=== PATIENT | female | born 1985 | race Caucasian/White ===

== ENCOUNTER → 2016-07-18 | Outpatient (CLI) | payer BC | END | disposition home or self-care (01) | LOC: C.PAPS 15:42 | PROVIDERS: ATTEND Obstetrics & Gynecology | DX: Z34.90 Encounter for supervision of normal pregnancy, unspecified, unspecified trimester (principal) ==

== ENCOUNTER → 2016-07-18 | Outpatient (CLI) | payer BC ==
[2016-07-18 15:32] LABS: BASO % 0.5 %; BASO ABS # 0.06 K/uL (0-0.2); COMPLETE YES; EOS % 1.4 %; IG% 0.2 %; LYMPH % 16.7 %; LYMPH ABS # 1.99 K/uL (1.2-3.4); MEAN CELL VOLUME 88.9 fL (80-100); MEAN CORPUSCULAR HEMOGLOBIN 30.3 pg (25-34); MEAN CORPUSCULAR HGB CONC 34.1 g/dl (32-36); MEAN PLATELET VOLUME 10.5 fL (7.4-10.4); MONO % 7.9 %; NEUT % 73.3 %; PLATELET COUNT 256 K/uL (130-400); RED BLOOD COUNT 4.16 M/uL (4.2-5.4); WHITE BLOOD COUNT 11.94 K/uL (4.8-10.8)
[2016-07-18 15:55] LABS: URINE APPEARANCE CLEAR (CLEAR); URINE BILIRUBIN NEG (NEG); URINE COLOR YELLOW; URINE NITRITE NEG (NEG); URINE PH 5.5 (4.5-7.5); URINE SPECIFIC GRAVITY 1.006 (1.000-1.030); UROBILINOGEN NEG (NEG)
[2016-07-18 16:01] LABS: MANUAL MICROSCOPIC REQUIRED? NO; REVIEW REQ? NO
[2016-07-21 01:35] LABS: CHLAMYDIA TRACH RNA*** NOT DETECTED (NOT DETECTED); GC (NEIS GONORRHOEAE)RNA** NOT DETECTED (NOT DETECTED)
== END | disposition home or self-care (01) ==
LOC: C.LAB1850 14:54
PROVIDERS: ATTEND Obstetrics & Gynecology
DX: Z34.90 Encounter for supervision of normal pregnancy, unspecified, unspecified trimester (principal); N76.2 Acute vulvitis

== ENCOUNTER → 2016-09-12 | Outpatient (CLI) | payer BC ==
[~2016-09-12] MED LIST: PRENTAB26 PO; SACC250C11
[2016-09-12 18:52] LABS: GTGD 50 Grams
[2016-09-14 14:34] LABS: AFP CONCENTRATION 22.4 NG/ML; AFP MULTIPLE OF MEDIAN 0.64; AFPTS GESTATIONAL AGE 15.9 WEEKS; AFPTS INSULIN DEP DIABETIC? NO; AFPTS MATERNAL WT 132 LBS; ALPHA-FETOPROTEIN RACE CAUCASIAN=W; HISTORY OF NTD NO; REPEAT SAMPLE? NO
== END | disposition home or self-care (01) ==
LOC: C.LAB1850 15:31
PROVIDERS: ATTEND Obstetrics & Gynecology
DX: Z34.83 Encounter for supervision of other normal pregnancy, third trimester (principal)

== ENCOUNTER → 2016-12-08 | Outpatient (CLI) | payer BC ==
[2016-12-08 16:13] LABS: URINE APPEARANCE CLEAR (CLEAR); URINE BILIRUBIN NEG (NEG); URINE COLOR YELLOW; URINE EPITHELIAL CELL AUTO 0-5 /lpf (0-5); URINE NITRITE NEG (NEG); URINE SPECIFIC GRAVITY 1.014 (1.000-1.030); UROBILINOGEN NEG (NEG)
[2016-12-08 16:14] LABS: MANUAL MICROSCOPIC REQUIRED? NO; REVIEW REQ? NO
== END | disposition home or self-care (01) ==
LOC: C.LABSPEC 15:49
PROVIDERS: ATTEND Obstetrics & Gynecology
DX: Z34.83 Encounter for supervision of other normal pregnancy, third trimester (principal)

== ENCOUNTER → 2016-12-08 | Outpatient (CLI) | payer BC ==
[2016-12-08 16:33] LABS: HEMATOCRIT 35.5 % (37-47)
[2016-12-08 17:05] LABS: GTGD 50 Grams
== END | disposition home or self-care (01) ==
LOC: C.LAB1850 15:15
PROVIDERS: ATTEND Obstetrics & Gynecology
DX: Z34.83 Encounter for supervision of other normal pregnancy, third trimester (principal)

== ENCOUNTER → 2017-02-02 | Outpatient (CLI) | payer BC | END | disposition home or self-care (01) | LOC: C.LABSPEC 13:44 | PROVIDERS: ATTEND Obstetrics & Gynecology | DX: Z34.83 Encounter for supervision of other normal pregnancy, third trimester (principal) ==

== ENCOUNTER 2017-03-02 14:41 | Inpatient (IN) | payer BC ==
[~2017-03-02] VITALS: Ht 162.6 cm; Wt 76.0 kg
[2017-03-02] MEDS ORDERED: LACTATED RINGER'S 1000ML 1,000 ML IV SCH (15:06)
[2017-03-02] MEDS ORDERED: LACTATED RINGER'S 1000ML 1,000 ML IV PRN (15:06)
[2017-03-02] MEDS ORDERED: OXYTOCIN 30 UNITS/500ML NSS IV ONE (15:08)
[2017-03-02] MEDS ORDERED: FENTANYL 2MCG/ML ROPIV 1.25MG/ML 100ML BAG EPI ONE (15:09)
[2017-03-02] MEDS ORDERED: EpHEDrine SULFATE INJ 50 MG/ML AMP ONE (15:09)
[2017-03-02] MEDS ORDERED: FENTANYL CITRATE INJ 50 MCG/1 ML 2 ML VIAL ONE (15:09)
[2017-03-02] MEDS ORDERED: BUPIVACAINE 0.25% 30 ML VIAL ONE (15:09)
[2017-03-02 15:35] LABS: HEMATOCRIT 38.2 % (37-47); MEAN CELL VOLUME 89.5 fL (80-100); MEAN CORPUSCULAR HEMOGLOBIN 30.7 pg (25-34); MEAN CORPUSCULAR HGB CONC 34.3 g/dl (32-36); MEAN PLATELET VOLUME 11.4 fL (7.4-10.4); PLATELET COUNT 186 K/uL (130-400); RED BLOOD COUNT 4.27 M/uL (4.2-5.4); WHITE BLOOD COUNT 13.21 K/uL (4.8-10.8)
[2017-03-02] MEDS ORDERED: LACTATED RINGER'S 1000ML 500 ML IV PRN (16:01)
[2017-03-02] MEDS ORDERED: NALOXONE HCL INJ 1 MG in SODIUM CHLORIDE 0.9% 1000ML 1,000 ML IV PRN ×4 (16:01)
[2017-03-02] MEDS ORDERED: PROMETHAZINE HCL INJ 25 MG in SODIUM CHLORIDE 0.9% 50ML 50 ML IV PRN (16:15)
[2017-03-02] MEDS ORDERED: ONDANSETRON INJ 2 MG/ML 2 ML VIAL IV PRN (16:15)
[2017-03-02] MEDS ORDERED: EpHEDrine SULFATE INJ 50 MG/ML AMP IV PRN (16:15)
[2017-03-02] MEDS ORDERED: DiphenhydrAMINE HCL 50 MG/ML VIAL IV PRN (16:15)
[2017-03-02] MEDS ORDERED: FENTANYL 2MCG/ML ROPIV 1.25MG/ML 100ML BAG EPI PRN (16:15)
[2017-03-02] MEDS ORDERED: NALBUPHINE HCL INJ 10 MG/ML AMP IV PRN (16:15)
[2017-03-02] MEDS ORDERED: METOCLOPRAMIDE HCL INJ 20 MG in SODIUM CHLORIDE 0.9% 50ML 50 ML IV PRN (16:15)
[2017-03-02] MEDS ORDERED: NALOXONE HCL INJ 0.4 MG/1 ML VIAL/CARP IV PRN (16:15)
[2017-03-02] MEDS ORDERED: PRENTAB26 PO (16:50)
[2017-03-02] MEDS ORDERED: SACC250C11 (16:50)
[2017-03-02 16:52] VITALS: Ht 162.6 cm; Wt 76.0 kg
[2017-03-02] MEDS ORDERED: OXYTOCIN 30 UNITS/500ML NSS IV PRN (19:00)
[2017-03-02] MEDS ORDERED: SUPERCREAM 0.870 % 15GM JAR EXT PRN (19:00)
[2017-03-02] MEDS ORDERED: OXYCODONE/ACETAMINOPHEN 5-325 TAB PO PRN (19:00)
[2017-03-02] MEDS ORDERED: LANOLIN OINT EXT PRN ×2 (19:00)
[2017-03-02] MEDS ORDERED: HYDROCORTISONE ACETATE 25 MG SUPP PR PRN (19:00)
[2017-03-02] MEDS ORDERED: BENZOCAINE 20% AER SPR 82.5 GM CAN EXT PRN (19:00)
--- NOTE | 2017-03-02 20:44 | Anesthesia Procedure Note ---
Anesthesia Epidural Removal Nt Date & Time Mar 02, 2017 at 20:44 Vital Signs Pain Intensity: 2.0 Notes Mental Status: alert / awake / arousable, participated in evaluation Nausea / Vomiting: adequately controlled Pain: adequately controlled Airway Patency, RR, SpO2: stable & adequate BP & HR: stable & adequate Hydration State: stable & adequate Neuraxial Anesthesia: was administered Anesthetic Complications: no major complications apparent, pt satisfied with anesthetic care Epidural: removed without complications, with tip intact
--- NOTE | 2017-03-02 21:05 | DELIVERY SUMMARY ---
DATE OF OPERATION: 03/02/2017 PREOPERATIVE DIAGNOSES: 1. Intrauterine at 40 weeks. 2. Active labor. POSTOPERATIVE DIAGNOSES: 1. Intrauterine at 40 weeks. 2. Active labor. 3. Meconium. PROCEDURES: 1. Epidural anesthesia. 2. Normal spontaneous vaginal delivery. 3. She had a second degree perineal laceration with repair. SURGEON: Belkis Lira MD ANESTHESIA: Epidural. ESTIMATED BLOOD LOSS: 400 mL. PROCEDURE: The patient presented to labor and delivery in active labor at 7 cm. She underwent an epidural anesthetic. She underwent spontaneous rupture of membranes and was found to be complete-complete and +2 station. She pushed for approximately 10 minutes to deliver a viable male infant in JAVON presentation. There was a loose nuchal cord x1 that was reduced. The rest of baby was then delivered without difficulty. There was thick meconium noted after delivery of the baby's head. The baby however was vigorous. The nose and mouth were bulb suctioned. The was placed on the maternal abdomen for drying and attention, where the cord was clamped and cut. Cord blood in segment were obtained. Placenta was delivered spontaneously intact with a 3-vessel cord. Cervix, sulci and rectum were examined and found to be intact. Second degree perineal laceration was identified and repaired with 3-0 Vicryl. Apgars were 6 and 9. Mother and baby doing well at the end of the delivery. I attest to the content of the Intraoperative Record and any orders documented therein. Any exception s are noted below.
[2017-03-02] MEDS: IBUPROFEN 600 MG TAB PO PRN (22:28)
[2017-03-02 23:05] VITALS: BP 126/79; PULSE 88; TEMP 36.7; O2SAT 97
[2017-03-02] MEDS: ACETAMINOPHEN 325 MG TAB PO PRN (23:51)
[2017-03-03 04:00] VITALS: BP 112/74; PULSE 71; TEMP 36.7; O2SAT 98
[2017-03-03] MEDS: IBUPROFEN 600 MG TAB PO PRN ×3 (05:31→20:37)
[2017-03-03 05:54] LABS: HEMATOCRIT 33.9 % (37-47)
--- NOTE | 2017-03-03 06:20 | Progress Note ---
Subjective Mar 03, 2017. Subjective conversation w/ patient, physical exam, lab review Ambulation: ambulating normally Voiding: no voiding problems Passing Gas: Yes Diet Tolerance: Regular Diet Lochia: Small Feeding Type: Breast Feeding Pain: controlled Objective Vital Signs Date Time Temp Pulse Resp B/P (MAP) Pulse Ox O2 Delivery O2 Flow Rate FiO2 03/03/17 04:00 36.7 71 18 112/74 (87) 98 Room Air 03/02/17 23:05 97 Room Air 03/02/17 23:05 36.7 88 20 126/79 (95) 97 Room Air Physical Exam General Appearance: WELL-APPEARING, WD/WN, NO APPARENT DISTRESS Abdomen: non tender, soft Fundus: Firm, Non-Tender, Relation to Umbilicus (2 below u) Extremities: non-tender, normal inspection, no pedal edema Laboratory Results Last 24 Hours Test 03/02/17 15:15 03/03/17 05:31 White Blood Count 13.21 K/uL Red Blood Count 4.27 M/uL Hemoglobin 13.1 g/dL 11.4 g/dL Hematocrit 38.2 % 33.9 % Mean Corpuscular Volume 89.5 fL Mean Corpuscular Hemoglobin 30.7 pg Mean Corpuscular Hemoglobin Concent 34.3 g/dl RDW Standard Deviation 46.1 fL RDW Coefficient of Variation 14.0 % Platelet Count 186 K/uL Mean Platelet Volume 11.4 fL Assessment and Plan Post- Day#: 1 Continue Routine Care: Doing well. Routine pp care.
[2017-03-03 08:15] VITALS: BP 111/76; PULSE 76; TEMP 36.6; O2SAT 99
[2017-03-03] MEDS: DOCUSATE SODIUM 100 MG CAP PO SCH ×2 (08:52→20:37)
[2017-03-03] MEDS: PRENATAL VITAMIN TAB PO SCH (08:53)
[2017-03-03] MEDS: ACETAMINOPHEN 325 MG TAB PO PRN ×2 (08:53→15:37)
[2017-03-03 11:30] VITALS: BP 124/76; PULSE 71; TEMP 36.6; O2SAT 99
[2017-03-03 16:30] VITALS: BP 117/75; PULSE 67; TEMP 36.6; O2SAT 100
[2017-03-03 20:40] VITALS: BP 118/72; PULSE 68; TEMP 36.7
[2017-03-04] MEDS: ACETAMINOPHEN 325 MG TAB PO PRN ×2 (00:24→18:42)
[2017-03-04 00:30] VITALS: BP 115/70; PULSE 77; TEMP 36.8
[2017-03-04] MEDS: IBUPROFEN 600 MG TAB PO PRN ×4 (03:09→18:37)
--- NOTE | 2017-03-04 06:47 | Progress Note ---
Subjective Mar 04, 2017. Subjective conversation w/ patient, physical exam, lab review Ambulation: ambulating normally Voiding: no voiding problems Passing Gas: Yes Lochia: Small Feeding Type: Breast Feeding Objective Vital Signs Date Time Temp Pulse Resp B/P (MAP) Pulse Ox O2 Delivery O2 Flow Rate FiO2 03/04/17 00:32 Room Air 03/04/17 00:30 36.8 77 16 115/70 (85) 03/03/17 20:40 Room Air 03/03/17 20:40 36.7 68 16 118/72 (87) 03/03/17 16:30 Room Air 03/03/17 16:30 36.6 67 16 117/75 (89) 100 Room Air 03/03/17 11:30 36.6 71 12 124/76 (92) 99 Room Air 03/03/17 08:15 Room Air 03/03/17 08:15 36.6 76 13 111/76 (88) 99 Room Air Physical Exam General Appearance: WELL-APPEARING Abdomen: non tender Fundus: Firm Extremities: no calf tenderness Assessment and Plan Post- Day#: 2 Continue Routine Care: home/nest
--- NOTE | 2017-03-04 06:48 | Discharge Instructions ---
Discharge Instructions Date of Service Mar 04, 2017. Admission Reason for Admission: Check Labor Discharge Discharge Diagnosis / Problem: Discharge Goals Goal(s): Routine recovery after delivery Activity Recommendations Activity Limitations: per Instructions/Follow-up section . Instructions / Follow-Up Instructions / Follow-Up ACTIVITY RECOMMENDATIONS: * Gradual return to full activity over the next 2-3 weeks. * No lifting - nothing heavier than baby over the next 2-3 weeks. * Do not engage in vigorous exercise, sexual activity or sports until cleared by your physician. * Do not drive or operate any motorized equipment until cleared by your physician. * You may shower/bathe daily. MEDICATIONS: For discomfort or pain, you may use Acetaminophen (Tylenol), Ibuprofen (Advil), or Naproxen (Aleve) following the package directions. For constipation you may use Colace following the package directions. BREAST CARE: If you are not breast feeding: * Wear a supportive bra 24 hours a day for one to two weeks. * Avoid stimulating your breasts and nipples as much as possible during the first few weeks after delivery. * When taking a shower, have the warm water hit your back, not breasts. * When your breasts feel full, apply ice packs. Usually three to four times a day helps ease the discomfort. * Take a mild pain medication (Tylenol / Motrin) when you are uncomfortable. If breast feeding: * Use breast milk to lubricate nipples. Lansinoh cream may be used for sore nipples. You do not need to remove cream prior to breast feeding. If using a different brand of cream, check the label for directions regarding removal of cream prior to nursing. * Wear a supportive bra. * If having problems with breasts or breast feeding, call a risk assessment consultant or your health care provider. EPISIOTOMY CARE: After delivery, if you have an episiotomy (stitches), the following steps will ease discomfort and aid healing. * For the first 24 hours after delivery, place ice packs next to your episiotomy to help reduce swelling. * After the first 24 hour-period, sitz baths, either portable or in the tub, are suggested. A shower with a shower arm sprayed over the episiotomy may be comforting. * Ellie care should be done after each voiding and bowel movement. Squirt warm water from a plastic bottle over the perineum (region of the body between the anus and urinary opening) and pat dry. * Use Dermoplast to ease discomfort. Shake container. [place] directly over the episiotomy. Place a Tucks on a clean sanitary pad next to your episiotomy. SPECIAL CARE INSTRUCTIONS: When you are discharged from the hospital, it is important for you to follow the instructions listed below: * During the first week at home, you should be able to care for yourself and your baby. In addition, the usual light household activities are encouraged. * Limit your activities to the way you feel. Do not try to clean the house or move furniture. Be sensible. * If you actively engage in sports and have done so up until the time of your delivery, you may resume these activities as soon as you feel able. This may take up to one month or even longer. Use good judgment. * Continue to take your vitamins for at least six weeks after the of your baby. * Your diet need not be limited unless you were on a special diet before your delivery. Breast-feeding mothers need around 2500 calories per day and at least 64-80 ounces of fluid per day (8 to 10 glasses). * You should eat foods from the four major food groups. Crash diets or fad diets are to be avoided. Eating lean meats, fresh fruits and vegetables, low-fat dairy products, high fiber foods and a regular exercise program, will help you get back to your pre- weight without putting your health at risk. * Constipation is sometimes a problem after delivery. Take a mild laxative as needed. If breast feeding, Milk of Magnesia is acceptable to use. You may use a suppository or Fleets enema if no episiotomy. * A daily shower or tub bath is suggested. Be sure to thoroughly and gently dry the perineum. * A bloody vaginal discharge will usually continue until around four weeks post . A small amount of bleeding may continue for as long as six weeks. Vaginal discharge changes from the bright red bleeding after delivery to pink then brownish and finally yellowish-pink before becoming white and disappearing. * Bleeding may increase with activity. Your first period may come in 4-8 weeks. If you are breast feeding, your period may be delayed even longer. * [place] (sex) can begin whenever both you and your partner feel comfortable and do not have any form of genital infection. It is recommended that you wait at least six weeks for internal and external healing to occur. If you have questions, please talk to your health care practitioner. A condom should be used to prevent infection and . * Foreplay, gentle intercourse and lubrication is very important the first several times to prevent pain. A water-based lubricant such as K-Y jelly or Astroglide may be used. * If you have RH negative blood and your baby is RH positive, you will receive RHOGAM by injection prior to discharge. The nurse will give you a card to keep with you that has the date and place that you received RHOGAM after delivery. * During your care, you had a Rubella screen done to check for the presence of rubella antibodies in your blood. If your test was negative, you will receive a Rubella vaccine prior to discharge. This vaccine may cause a fever, soreness at the injection site and flu-like symptoms. If these symptoms persist, notify your health care practitioner. is not advised for one month after a Rubella vaccine. * Verbalizes understanding of car seat law as reviewed with patient nursing. * Car Seat hand-out given and reviewed with patient by nursing. * Shaken baby information reviewed with patient by nursing. Call you doctor if: * Heavy bleeding (saturating several pads an hour) or passing clots the size of your fist. * A fever >101 degrees F (38.3 degrees C) on two occasions four hours apart and /or chills. * Unusual pain in the pelvic or vaginal areas. * "Baby Blues" lasting longer than two weeks. If you have any questions or concerns, call your health care practitioner at . FOLLOW UP VISIT: * Please call the office at to schedule a 6 week examination. It is important you keep this appointment. It is important for you to make arrangements for either yearly or twice yearly check-ups thereafter. Current Hospital Diet Patient's current hospital diet: Regular OB Diet Discharge Diet Recommended Diet: Regular OB Diet Pending Studies Studies pending at discharge: no Medical Emergencies . Who to Call and When: Medical Emergencies: If at any time you feel your situation is an emergency, please call 911 immediately. . Non-Emergent Contact Non-Emergency issues call your: Shell Sieve Operator . . "Provider Documentation" section prepared by Francis Vaughn. . VTE Core Measure Inpt VTE Proph given/why not?: Treatment not indicated
[2017-03-04 07:50] VITALS: BP 129/88; PULSE 80; TEMP 36.9; O2SAT 97
[2017-03-04] MEDS: DOCUSATE SODIUM 100 MG CAP PO SCH ×2 (08:04→18:37)
[2017-03-04] MEDS: PRENATAL VITAMIN TAB PO SCH (08:04)
[2017-03-04 15:30] VITALS: BP 132/84; PULSE 94; TEMP 36.5
[2017-03-04 19:15] VITALS: BP_DIAS 84; PULSE 94; TEMP 36.5
== END 2017-03-04 19:30 | disposition home or self-care (01) | DRG 775 ==
LOC: C.LD 14:41 → C.OPB 14:41 → C.LD 15:07 → C.MS4N 22:08
PROVIDERS: ADMIT Obstetrics & Gynecology; ATTEND Obstetrics & Gynecology
PROC: 0KQM0ZZ Repair Perineum Muscle, Open Approach (ICD-10-PCS; principal; 2017-03-02)
PROC: 10E0XZZ Delivery of Products of Conception, External Approach (ICD-10-PCS; principal; 2017-03-02)
DX: O70.1 Second degree perineal laceration during delivery (principal); O69.81X0 Labor and delivery complicated by cord around neck, without compression, not applicable or unspecified; Z3A.40 40 weeks gestation of pregnancy; Z37.0 Single live birth

== ENCOUNTER → 2017-09-06 | Outpatient (CLI) | payer OTHER | LOC: C.LABSPEC 15:59 | PROVIDERS: ATTEND Physician Assistant | DX: L29.8 Other pruritus (principal) ==

== ENCOUNTER 2020-06-29 18:47 | Inpatient (IN) ==
[2020-06-29] MEDS ORDERED: LACTATED RINGER'S 1,000 ML IV PRN (21:26)
[2020-06-29] MEDS ORDERED: PENICILLIN G POTASSIUM 3 MU in DEXTROSE 5% 100 ML IV PRN (21:26)
[2020-06-29] MEDS ORDERED: PENICILLIN G POTASSIUM 6 MU in DEXTROSE 5% 250 ML IV STA (21:26)
[2020-06-29] MEDS ORDERED: OXYTOCIN 30 UNITS/500 ML BAG IV PRN (21:26)
--- NOTE | 2020-06-29 21:34 | History & Physical Report ---
Date of Service June 29, 2020 Assessment & Plan (1) Normal labor: IUP at 39+ weeks in labor will start PCN G with plan to AROM when close to second dose of PCN G patient would like to try unmedicated this time anticipate vaginal History of Present Illness Primary Care Provider: Hans Villaseñor MD Patient is a 35 yo white female EDC 07/02/20 who presents at 39 4/7 weeks with regular contractions. When she first presented to L&D, her contractions spaced out. But after walking for 2 hours the contractions became more regular which was reflected in cervical change. (-)SPROM, some bloody show. GBS (+), blood type- A positive. Allergies Allergy/AdvReac Type Severity Reaction Status Date / Time No Known Allergies Allergy Verified 06/25/20 10:34 Home Medications Medication Instructions Recorded Confirmed Type prenat.vits,jean,[id number] 1 tab PO DAILY 07/05/19 06/25/20 History mesalamine 1,000 mg rectal [place] 11/13/19 06/25/20 History suppository magnesium PO 01/15/20 06/25/20 History famotidine PO 02/12/20 06/25/20 History breast pump #1 ea 04/30/20 06/25/20 Rx sertraline 25 mg tablet 25 mg PO DAILY #30 tab 05/24/20 06/25/20 Rx sertraline 25 mg tablet 25 mg PO DAILY 06/04/20 06/25/20 History Patient History Medical History Cold sore Cyst of breast Cystocele, midline Encounter for annual routine gynecological examination Hx of varicella Left ovarian cyst Mastitis, acute Supervision of normal intrauterine in multigravida [facility] carrier neg Ulcerative proctitis Surgical History H/O colonoscopy 2018, ulcerative proctitis H/O oral surgery Family History Grandfather (Paternal) Colorectal cancer Uncle Heart disease Social History Smoking Status: Never smoker Hx Alcohol Use: No Hx Substance Use: No Preferred Language: Chadian Communication Ability: Effective Beliefs That Will Affect Care: None marital status: marital status details: Vicente Gaspar (34) [phone] Current Living Situation: Family Current Living Situation Comment: lives with spouse and children, no pets 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 Other Information That Helps Us Care for You: No Review of Systems All systems reviewed & are unremarkable except as noted in HPI & below Physical Exam Constitutional: WD/WN, vitals as above Respiratory: normal respiratory effort, lungs clear to auscultation Cardiovascular: RRR, no murmur, no edema Gastrointestinal (Abdomen): normal bowel sounds, soft, nontender, no hepatosplenomegaly Psychiatric: A+Ox3, euthymic affect Genitourinary: OB Exam Abdomen: + vertex Manual OB Exam: + cervical dilation 4 cm, + cervical effacement 90% and + station -1 OB Exam Monitor Tracing: + external FHT monitor used, + external uterine monitor used, + category I and + normal FHT variability Results & Data ([facility]) Vital Signs (Past 12 Hours) Vital Signs Temp Pulse Resp BP 06/29/20 19:02 98.1 F 18 06/29/20 18:57 74 132/75 Coding Level of Care Code None Diagnoses Normal labor O80; Z37.9
[2020-06-29] MEDS ORDERED: SERTRALINE HCL 50 MG TABLET PO ONE (21:38)
[2020-06-29 21:46] LABS: Hematocrit (blood only) 38.4 % (37-47); Hemoglobin 12.9 g/dL (12.0-16.0); Mean Corpuscular Hemoglobin 31.7 pg (25-34); Mean Corpuscular Hgb Conc 33.6 g/dL (32-36); Mean Corpuscular Volume 94.3 fL (80-100); Mean Platelet Volume 11.7 fL (7.4-10.4); Platelet Count 184 K/uL (130-400); RDW Coefficient of Variation 14.5 % (11.5-14.5); RDW Standard Deviation 49.5 fL (36.4-46.3); Red Blood Count 4.07 M/uL (4.2-5.4); White Blood Count 11.18 K/uL (4.8-10.8)
[2020-06-29] MEDS ORDERED: ePHEDrine sulfate 50 MG/ML AMP ONE (22:51)
[2020-06-29] MEDS ORDERED: SODIUM CHLORIDE 0.9% INJ 10 ML VIAL ONE (22:51)
[2020-06-29] MEDS ORDERED: fentaNYL citrate 100 MCG/2 ML VIAL ONE (22:51)
[2020-06-29] MEDS ORDERED: BUPIVACAINE 0.25% 30 ML VIAL ONE (22:51)
[2020-06-29] MEDS ORDERED: fentaNYL 2MCG/ML ROPIVACAINE 1.25MG/ML 100 ML BAG EPI ONE (22:52)
[2020-06-29] MEDS ORDERED: diphenhydrAMINE 50 MG/ML VIAL IV PRN (22:55)
[2020-06-29] MEDS ORDERED: fentaNYL 2MCG/ML ROPIVACAINE 1.25MG/ML 100 ML BAG EPI PRN (22:55)
[2020-06-29] MEDS ORDERED: ePHEDrine sulfate 50 MG/ML AMP IV PRN (22:55)
[2020-06-29] MEDS ORDERED: NALOXONE HCL 1 MG in SODIUM CHLORIDE 0.9% 1000ML 1,000 ML IV PRN (22:55)
[2020-06-29] MEDS ORDERED: NALOXONE HCL 0.4 MG/1 ML VIAL/CARP IV PRN (22:55)
[2020-06-29] MEDS ORDERED: ONDANSETRON INJ 2 MG/ML 2 ML VIAL IV PRN (22:55)
--- NOTE | 2020-06-29 22:59 | Anesthesiology Consultation ---
Date of Service June 29, 2020 Assessment & Plan (1) Encounter for pre-operative examination: Chart Review Chart Review: Acceptable Risk for Labor Epidural Consults Requested none ASA ASA2 Proposed Anesthesia Anesthesia Type: Labor Epidural Risk / Benefits Reviewed With: PT / POA / Parent / Guardian, Accepts Plan and Informed Consent Obtained History Height/Weight Height: 5 ft 4 in Weight: 80.739 kg Allergies Allergy/AdvReac Type Severity Reaction Status Date / Time No Known Allergies Allergy Verified 06/25/20 10:34 Medications Home Medications Medication Instructions Recorded Confirmed Last Taken prenat.vits,jean,gcn-[id number] 1 tab PO DAILY 07/05/19 06/29/20 06/28/20 21:00 mesalamine 1,000 mg rectal 1,000 mg [place] DAILY PRN 11/13/19 06/29/20 Unknown suppository magnesium 1 tab PO DAILY 01/15/20 06/29/20 06/28/20 21:00 breast pump #1 ea 04/30/20 06/25/20 Unknown sertraline 25 mg tablet 25 mg PO DAILY 06/04/20 06/29/20 06/28/20 21:00 Active Medications Generic Name Dose Route Start Last Admin Trade Name Freq PRN Reason Stop Dose Admin Lactated Ringer's 1,000 mls @ 125 mls/hr 06/29/20 21:26 06/29/20 22:07 Lr IV 07/01/20 21:25 0 mls/hr .Q8H PRN Infusion L&D Protocol Protocol Past Medical History Medical History Cold sore Cyst of breast Cystocele, midline Encounter for annual routine gynecological examination Hx of varicella Left ovarian cyst Mastitis, acute Supervision of normal intrauterine in multigravida [facility] carrier neg Ulcerative proctitis Exercise / Class Metabolic Activity II 4-5 Yardwork/Stairs/Walk up hill Past Family History Family History Grandfather (Paternal) Colorectal cancer Uncle Heart disease Past Surgical History Surgical History H/O colonoscopy 2019, ulcerative proctitis H/O oral surgery Past Anesthesia History No Hx of Anesthesia Complications and No Family Hx of Anesthesia Complications History of PONV No Hx of PONV and No Hx of Motion Sickness Social History Smoking Status: Never smoker Hx Alcohol Use: No Hx Substance Use: No Physical Exam Vital Signs Last Vital Signs Temp 98.1 F 06/29/20 19:02 Pulse 74 06/29/20 18:57 Resp 18 06/29/20 19:02 BP 132/75 06/29/20 18:57 ENMT Mouth: no dentition abnormality Thyromental Distance: > or= 3.5 Finger Breadths Mallampati Class: II Neck normal visual inspection Respiratory normal respiratory effort Auscultation: lungs clear to auscultation bilaterally Cardiovascular Rate/Rhythm: regular rate and regular rhythm Testing Laboratory Results 06/29/20 21:36
[2020-06-30] MEDS ORDERED: CALCIUM CARBONATE 500 MG CHEWABLE TAB PO PRN (03:40)
[2020-06-30] MEDS ORDERED: ERYTHROMYCIN OP OINT 1 GM PKT ONE (04:37)
[2020-06-30] MEDS ORDERED: DIPHTHERIA/TETANUS/PERTUSSIS 0.5 ML SYR/VIAL IM ONE (05:02)
[2020-06-30] MEDS ORDERED: SUPERCREAM 0.870% 15 GM JAR EXT PRN (05:02)
[2020-06-30] MEDS ORDERED: OXYTOCIN 30 UNITS/500 ML BAG IV PRN (05:02)
[2020-06-30] MEDS ORDERED: HYDROCORTISONE ACETATE 25 MG SUPP PR PRN (05:02)
[2020-06-30] MEDS ORDERED: BENZOCAINE 20% AER SPR 82.5 GM CAN EXT PRN (05:02)
[2020-06-30] MEDS ORDERED: bisacodyL 10 MG SUPP PR PRN (05:02)
[2020-06-30] MEDS ORDERED: IBUPROFEN 600 MG TAB PO PRN (05:02)
[2020-06-30] MEDS ORDERED: oxyCODONE/ACETAMINOPHEN 5mg/325mg TAB PO PRN (05:02)
--- NOTE | 2020-06-30 06:21 | Delivery Summary ---
Vaginal Delivery Summary Date of Service June 30, 2020 Patient is a 35-year-old 3 para 2-0-0-2 white female who had presented in active labor with intact membranes. GBS is positive and she received 2 doses of penicillin prior to actively rupturing her membranes. She requested if epidural analgesia which was effective. She progressed to full dilation and pushed through several contractions to . The infant was delivered from the vertex presentation with support of the perineum. The rest of the delivered easily and was placed on the mother's abdomen for further attention and drying. After cord blood was obtained the placenta was expressed intact with a three-vessel cord. A portion of retained membranes was removed with ring forceps from the vagina. A first-degree perineal laceration was repaired with 3-0 chromic in the usual fashion. Estimated blood loss was 250 cc. bleeding was controlled with dilute Pitocin. Mother and were doing well after delivery. Vaginal Delivery Summary and 1st Degree LAC [facility] [place] Vaginal Delivery Charge Vaginal Delivery Codes: 66894 global code for the antepartum, delivery, and post- Delivery Type Details: and 1st Degree LAC
--- NOTE | 2020-06-30 07:22 | Anesthesiology Progress Note ---
Date of Service June 30, 2020 Anesthesia Post Procedure Vital Signs Vital Signs: Temp Pulse Resp BP Pulse Ox 06/30/20 07:19 88 104/65 06/30/20 07:04 81 109/68 06/30/20 07:00 36.9 C 20 06/30/20 06:49 80 102/64 06/30/20 06:34 78 109/67 06/30/20 06:19 80 111/72 06/30/20 06:05 75 116/81 06/30/20 05:49 75 108/59 L 06/30/20 05:34 81 112/59 L 06/30/20 05:19 84 113/62 06/30/20 05:01 106 H 123/69 06/30/20 04:54 86 123/68 06/30/20 04:49 85 98 06/30/20 04:44 79 99 06/30/20 04:40 117 H 137/84 06/30/20 04:39 93 H 98 06/30/20 04:34 127 H 97 06/30/20 04:29 114 H 96 06/30/20 04:28 74 92 06/30/20 04:24 71 114/58 L 93 06/30/20 04:22 82 93 06/30/20 04:19 76 91 06/30/20 04:14 73 93 06/30/20 04:09 73 107/65 92 06/30/20 04:04 92 H 94 06/30/20 04:02 70 94 06/30/20 03:59 78 94 06/30/20 03:56 77 94 06/30/20 03:55 82 113/64 06/30/20 03:54 94 H 97 06/30/20 03:49 73 95 06/30/20 03:48 73 94 06/30/20 03:44 87 95 06/30/20 03:41 71 94 06/30/20 03:40 79 109/67 06/30/20 03:39 80 95 06/30/20 03:34 87 96 06/30/20 03:29 86 98 06/30/20 03:25 77 117/57 L 06/30/20 03:24 85 97 06/30/20 03:19 37.0 C 91 H 18 96 06/30/20 03:14 80 96 06/30/20 03:09 85 134/75 96 06/30/20 03:04 94 H 96 06/30/20 03:00 16 06/30/20 02:59 91 H 97 06/30/20 02:54 91 H 98 06/30/20 02:53 88 121/71 06/30/20 02:49 86 97 06/30/20 02:44 89 98 06/30/20 02:39 87 96 06/30/20 02:38 79 120/70 06/30/20 02:34 88 97 06/30/20 02:29 84 96 06/30/20 02:24 85 96 06/30/20 02:23 81 120/70 06/30/20 02:19 84 97 06/30/20 02:14 86 96 06/30/20 02:10 78 117/72 06/30/20 02:09 80 97 06/30/20 02:05 87 94 06/30/20 02:04 80 95 06/30/20 01:59 86 96 06/30/20 01:54 85 120/69 96 06/30/20 01:49 84 96 06/30/20 01:44 83 97 06/30/20 01:39 80 96 06/30/20 01:38 78 129/68 06/30/20 01:34 90 97 06/30/20 01:29 80 97 06/30/20 01:24 82 126/69 97 06/30/20 01:19 80 96 06/30/20 01:14 83 96 06/30/20 01:10 83 127/69 06/30/20 01:09 79 97 06/30/20 01:04 78 96 06/30/20 01:00 36.6 C 18 06/30/20 00:59 80 97 06/30/20 00:54 113 H 123/84 99 06/30/20 00:49 77 97 06/30/20 00:44 88 98 06/30/20 00:39 85 98 06/30/20 00:38 90 119/72 06/30/20 00:34 84 98 06/30/20 00:29 104 H 98 06/30/20 00:24 95 H 114/58 L 98 06/30/20 00:19 80 97 06/30/20 00:14 88 98 06/30/20 00:09 73 96 06/30/20 00:08 75 106/58 L 06/30/20 00:05 77 104/59 L 06/30/20 00:04 77 97 06/30/20 00:02 72 101/59 L 06/29/20 23:59 84 100/55 L 98 06/29/20 23:56 77 105/58 L 06/29/20 23:54 73 96 06/29/20 23:53 68 101/61 06/29/20 23:50 74 107/69 06/29/20 23:49 77 97 06/29/20 23:47 70 103/61 06/29/20 23:44 74 100/58 L 97 06/29/20 23:41 75 104/62 06/29/20 23:39 73 98 06/29/20 23:38 77 123/75 06/29/20 23:35 69 105/58 L 06/29/20 23:34 75 96 06/29/20 23:32 71 111/60 06/29/20 23:29 74 106/63 97 06/29/20 23:26 74 107/63 06/29/20 23:24 91 H 98 06/29/20 23:23 80 106/61 06/29/20 23:20 77 111/62 06/29/20 23:19 77 98 06/29/20 23:17 81 114/64 06/29/20 23:14 93 H 130/74 100 06/29/20 23:11 99 H 131/89 06/29/20 23:09 103 H 100 06/29/20 23:04 86 100 06/29/20 22:59 96 H 100 06/29/20 19:02 36.7 C 18 06/29/20 18:57 74 132/75 Pain Intensity Abdomen: Pain Intensity: 1 Transfer of Care Handoff Completed per policy Notes Mental Status: alert / awake / arousable and participated in evaluation Patient Amnestic to Procedure: Yes Nausea / Vomiting: adequately controlled Pain: adequately controlled Airway Patency, RR, SpO2: stable & adequate BP & HR: stable & adequate Hydration State: stable & adequate Anesthetic Complications: no major complications apparent and Pt Satisfied with anesthetic care
[2020-06-30] MEDS: DOCUSATE SODIUM 100 MG CAP PO SCH ×2 (08:24→21:04)
[2020-06-30] MEDS: ACETAMINOPHEN 325 MG TAB PO PRN ×3 (08:24→23:35)
[2020-06-30] MEDS: PRENATAL VITAMIN 1 TAB PO SCH (08:24)
[2020-06-30] MEDS ORDERED: SERTRALINE HCL 50 MG TABLET PO SCH (21:00)
[2020-07-01] MEDS: ACETAMINOPHEN 325 MG TAB PO PRN ×2 (05:49→13:58)
[2020-07-01 06:23] LABS: Hematocrit (blood only) 38.3 % (37-47); Hemoglobin 12.7 g/dL (12.0-16.0); Mean Corpuscular Hemoglobin 31.2 pg (25-34); Mean Corpuscular Hgb Conc 33.2 g/dL (32-36); Mean Corpuscular Volume 94.1 fL (80-100); Mean Platelet Volume 11.2 fL (7.4-10.4); Platelet Count 152 K/uL (130-400); RDW Coefficient of Variation 14.5 % (11.5-14.5); RDW Standard Deviation 49.6 fL (36.4-46.3); Red Blood Count 4.07 M/uL (4.2-5.4); White Blood Count 10.63 K/uL (4.8-10.8)
--- NOTE | 2020-07-01 06:36 | Obstetrical Progress Note ---
Date of Service <Wesly Salcedo MD - Last Filed: 07/01/20 07:22> July 01, 2020 Assessment & Plan <Wesly Salcedo MD - Last Filed: 07/01/20 07:22> (1) state: 35 y/o s/p 0445 06/30/20 at 39w5d and is PPD1. GBS+ s/p PCN. not immune vzv or measles. A positive. Rubella immune. - vitals reviewed - meeting PP milestones - . would like to see party plan sales consultant - routine care - dispo home today - GBS+, but adequately treated - 6 wk PP f/u (2) Anxiety and depression: - continue home Sertraline 50 mg qpm. - stable Subjective <Wesly Salcedo MD - Last Filed: 07/01/20 07:22> Ambulation: ambulating normally Voiding: no voiding problems Passing Gas:: Yes Diet Tolerance:: regular diet Lochia:: Small Feeding Type:: breast feeding (painful. latch not best. would like party plan sales consultant) Current Pain Level(1-10): 2 prefers late afternoon dispo today. Review of Systems Denies fever, chills, sweats Denies shortness of breath, chest pain, palpitations. Denies breast pain. Denies dysuria. Denies headache or changes in vision. Denies nausea/vomiting. Denies numbness, tingling, weakness. no calf pain no issues w/ mood Physical Exam <Wesly Salcedo MD - Last Filed: 07/01/20 07:22> General: Alert, oriented. No acute distress. Cardiac: Regular rate and rhythm, no murmurs/rubs/gallops. Respiratory: Clear to auscultation bilaterally, no wheezes/rales/rhonchi. No respiratory distress. Abdomen: , soft, nontender. Uterus: Uterine fundus firm, palpable 2cm below umbilicus. Lower Extremities: No lower extremity edema or swelling. No deep calf pain. Rosa's negative bilaterally. Results & Data ([facility]) <Wesly Salcedo MD - Last Filed: 07/01/20 07:22> Vital Signs (Past 12 Hours) Vital Signs Temp Pulse Resp BP Pulse Ox 07/01/20 03:30 36.6 C 64 18 125/78 06/30/20 23:35 36.6 C 76 20 114/78 06/30/20 19:40 36.9 C 74 18 122/80 98 Medications Administered <Ann Lazo MD - Last Filed: 07/01/20 07:13> Co-Signing Physician Notes Resident Physician Supervision Note: I interviewed and examined the patient. Discussed with Dr. Salcedo and agree with findings and plan as documented in the note. Any exceptions or clarifications are listed here: None Documented By: Ann Lazo MD, FACOG
[2020-07-01] MEDS: DOCUSATE SODIUM 100 MG CAP PO SCH (08:34)
[2020-07-01] MEDS: PRENATAL VITAMIN 1 TAB PO SCH (08:34)
[2020-07-01] MEDS ORDERED: bisacodyL 5 MG TABEC PO SCH (20:00)
== END 2020-07-01 14:20 | disposition home or self-care (01) | DRG 798 ==
LOC: OPB 18:47 → 4S1 18:47 → 4S2 06-30 09:30